=== PATIENT | male | born 1980 | race Caucasian/White ===

== ENCOUNTER 2017-04-27 19:45 | Inpatient (IN) | payer OTHER ==
--- NOTE | ~2017-04-27 | DS ---
Unit #: [id number] #: [id number] Patient: BRIELLE GARAY [id number] [address] [address] [id number] MR#: [id number] NAME: BRIELLE GARAY ROOM: 227 Age: 36 Sex: M Admission Date: 04/28/2017 : 1980 Discharge Date: Attending Physician: Kait Bryan M.D. Primary Care Physician: Espinoza Young M.D. DISCHARGE SUMMARY DISCHARGE DIAGNOSES 1. Heat exhaustion and heat cramps. 2. Acute kidney injury. 3. Hypovolemic hyponatremia. 4. Intravenous heroin dependence with daily use. 5. Hepatitis C. 6. Underweight. 7. Moderate calorie malnutrition. 8. Hypokalemia. 9. Smoking. 10. Homeless. 11. Degenerative joint disease. CONSULTATIONS None. PROCEDURES None. DIAGNOSTIC STUDIES LABORATORY: At the time of discharge, creatinine is 0.7, AST 54, ALT 67, alkaline phosphatase 93, phosphorus 2.5, magnesium 1.9, and albumin 3.1. WBC 6.8, hemoglobin 12.9, and platelets 203,000. Magnesium 2.3. Urine drug screen positive for amphetamines and opiates. HIV nonreactive. ALLERGIES None. DISCHARGE MEDICATIONS 1. Neurontin 300 at 3 times daily for heroin withdrawal. 2. Nicotine 21 mg transdermal daily. HOSPITAL COURSE A 36-year-old admitted because of muscle pains. Heat cramps with heat exhaustion. Patient was given IV fluids and is currently symptomatically better. Acute kidney injury secondary to prerenal and dehydration. Patient received IV fluids. Currently, creatinine is stable. Hypovolemic hyponatremia from dehydration and working outside in the hot sun according to him. Patient received IV fluids, and currently, sodium is better. Unit #: [id number] #: [id number] Patient: BRIELLE GARAY Intravenous heroin abuse with dependence and daily use with mild withdrawal. Continue Neurontin. I gave a prescription for six pills. History of hepatitis C, HIV negative. Outpatient followup with his primary care physician. He has mild transaminitis from it. Hypokalemia, replaced. Smoking. Advised to quit. Homeless. Patient will be seen by a social group worker to help him with his social issues. He should also follow with outpatient drug addiction center, social group worker to give more information. Dictated by... Juan Jose Castellanos TD: 04/29/2017 14:33 JOB #: [id number] DISCHARGE SUMMARY Page 1 of 1 X Kait Bryan MD X DISCHARGE SUMMARY
--- NOTE | ~2017-04-27 | BMI ---
[facility] Nutrition Therapy DATE: 04/28/17 Patient: BRIELLE GARAY Physician: JODI Address: [address] [place] [address] Room/Bed: [address] [place] [address], Zip: [place] [address] Admit Date: 04/28/17 Date of : [birth year] Height: 6 2 Weight: 142 64.8
--- NOTE | ~2017-04-27 | A ---
[facility] Nutrition Therapy DATE: 04/28/17 Patient: BRIELLE GARAY Physician: JODI Address: [address] [place] [address] Room/Bed: [address] [place] [address], Zip: [place] [address] Admit Date: 04/28/17 Date of : [birth year] Height: 6 2 Weight: 142 64.8 NUTRITIONAL ASSESSMENT: REASON: LOW BMI PT IS 36 Y.O. MALE ADMITTED FOR HEAT EXHAUSTION/CRAMPS PMH: ONGOING HEROIN ABUSE, HEP C Anthropometrics: 6'2", WT: 149# (PER PT & BED) (68 KG), BMI: 19.1, 78%IBW Labs: GLU: 136, CREAT: 1.9, CA+:8.3, AST: 50, ALT: 65, GFR: 43.8, K+:3.1, NA+:123 Meds: ZOFRAN, NACL I/O & Bowel function: 450/1 Skin Integrity: NO KNOWN SKIN ISSUES Estimated Nutrition Needs: INCREASED NEEDS 2' PT UNDERWEIGHT, CURRENT CONDITION Assessment: CHART REVIEWED AND EVENTS NOTED. PT SEEN FOR LOW BMI. PT ADMITTED FOR DX ABOVE. OF NOTE, PT HOMELESS. PT REPORTS GOOD PO INTAKE AND APPETITE, NO C/O N/V/D. PT ADMITS USING HEROIN IN PLACE OF FOOD OCCASIONALLY. PT NOTES UBW IS ~155#/NOTES NO RECENT WEIGHT LOSS. 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 THIS RD ENCOURAGED ADEQUATE KCAL, PROTEIN AND FLUID INTAKE (3 MEALS + 1-2 SNACKS DAILY), PT AGREED TO ENSURE SHAKES BID, RD TO ORDER. PT REPORTED NO DIET QUESTIONS AT THIS TIME. RD TO REMAIN AVAILABLE. Dx: UNDERWEIGHT R/T LIFESTYLE AEB LOW BMI OF 19.1, 78%IBW. Intervention: 1. REGULAR DIET 2. ENSURE SHAKES BID Monitoring, Evaluation and Goals: 1. ORAL INTAKE; CONSUME >50% OF MEALS AND SUPPLEMENTS 2. WEIGHTS; PREVENT ANY WEIGHT LOSS; PRESERVE LEAN BODY MASS 3. LABS; ALESIA MONITOR: -PO INTAKE/APPETITE -WEIGHTS -SUPPLEMENT INTAKE Recommendations: [facility] Nutrition Therapy DATE: 04/28/17 Patient: BRIELLE GARAY Physician: JODI Address: [address] [place] [address] Room/Bed: [address] [place] [address], Zip: [place] [address] Admit Date: 04/28/17 Date of : [birth year] Height: 6 2 Weight: 142 64.8 1. PLEASE ORDER DAMIEN ENSURE SHAKES BID W/MEALS FOR ADDITIONAL PROTEIN AND KCAL 2. CONSIDER PERSONNEL SPECIALIST/FINAL INSPECTOR MOVEMENT ASSEMBLY CONSULT RE: PLACEMENT AFTER D/C 3. PROVIDE WEIGHTS q 3 DAYS FOR MONITORING PURPOSES 4. ENCOURAGE ADEQUATE PO INTAKE PT IS UNDERWEIGHT RD WILL F/U PER PROTOCOL PT IS MILDLY COMPROMISED Respectfully, RONEL AGARWAL MS, RD, LD [employer] [facility] cc: client file
--- NOTE | ~2017-04-27 | HP ---
Unit #: [id number] #: [id number] Patient: BRIELLE GARAY [id number] [address] [address] [id number] I MR#: [id number] NAME: BRIELLE GARAY ROOM: 308 Age: 36 Sex: M Admission Date: 04/28/2017 : 1980 Attending Physician: Cortney Jimenes M.D. Primary Care Physician: Espinoza Young M.D. HISTORY AND PHYSICAL CHIEF COMPLAINT Heat exhaustion, heat cramps with acute kidney injury. HISTORY This 36-year-old homeless male, with history of hepatitis C and ongoing heroin abuse, is admitted for acute kidney injury and heat cramps. The patient was outside yesterday in the heat. Developed exhaustion as well as heat cramps. Presented to this emergency department late last evening mildly tachycardic. Labs show acute kidney injury and hyponatremia. He was bolused with 2 L of saline, given Tylenol, potassium and currently is feeling somewhat improved. He injects heroin on a daily basis and does not always use clean needles. States that he will go through heroin withdrawal. He currently is homeless, would like help for his heroin abuse. PAST MEDICAL HISTORY 1. Hepatitis C. 2. DJD. 3. Heroin abuse. ALLERGIES None. HOME MEDICATIONS None. FAMILY HISTORY Negative for kidney disease. SOCIAL HISTORY The patient is homeless. He smokes one pack per day of tobacco. Does not drink alcohol. Injects heroin on a daily basis, does not always use clean needles. REVIEW OF SYSTEMS Notable for heat cramps, heat exhaustion, hepatitis C, DJD, heroin abuse and tobacco abuse. All other systems were reviewed and are otherwise negative. PHYSICAL EXAMINATION GENERAL APPEARANCE: Pleasant 36-year-old male, currently chilling. VITAL SIGNS: Temperature is 97.6, heart rate 115, respirations 19, blood pressure 117/78. O2 saturation is 99% on room air. Unit #: [id number] #: [id number] Patient: BRIELLE GARAY HEENT: Eyes PERRLA. Extraocular muscles are intact. Pharynx is benign. NECK: Supple without adenopathy or thyromegaly. CHEST: Clear. CARDIAC: Normal S1 and S2, slightly tachycardic without murmur. ABDOMEN: Bowel sounds are present. No hepatosplenomegaly, tenderness or masses. EXTREMITIES: Without clubbing, cyanosis or edema. Pedal pulses are present. Track cary in the left AC region. No splinter hemorrhages noted over the fingernail beds. NEUROLOGIC: The patient is awake, alert, oriented. Cranial nerves are intact. He has equal strength throughout. DIAGNOSTIC STUDIES LABORATORY: Hematocrit is 50.8, white blood count is 18.1, normal platelet count. SMA-12 - BUN 21, creatinine 1.9, glucose 136, sodium 123, potassium 3.1. AST 50, ALT 65, alkaline phos. 118. Alcohol level negligible. ASSESSMENT 1. Heat exhaustion/heat cramps. 2. Acute kidney injury due to dehydration with hypovolemic hyponatremia. 3. Heroin abuse. 4. Hepatitis C. 5. Hypokalemia. 6. Tobacco abuse. 7. Homeless. PLANS 1. IV fluids. 2. Replace potassium and check magnesium. 3. Medications for opiate withdrawal. I will order Neurontin, Zofran, Toradol, Ultram and p.r.n. Imodium along with muscle relaxants as needed. 4. Urine tox screen. 5. lock up worker to see. 6. Check HIV. Dictated by Cortney Jimenes M.D. AML/df TD: 04/28/2017 07:01 JOB #: [id number] Unit #: [id number] #: [id number] Patient: BRIELLE GARAY HISTORY AND PHYSICAL Page 1 of 1 X Cortney Jimenes MD X HISTORY AND PHYSICAL
[~2017-04-27 19:45] MED LIST: BACLOFEN10 MG PO; MOTRIN600 MG PO; NO MEDICATIONS; VOLTAREN75 MG PO
[2017-04-27 23:07] LABS: BASOPHIL# 0.1 X10e3 (0-0.3); BASOPHIL% 0.7 % (0-2.5); EOSINOPHIL# 0.1 X10e3 (0-0.7); EOSINOPHIL% 0.6 % (0.0-7.0); HEMATOCRIT 50.8 % (38.0-50.0); HEMOGLOBIN 16.8 gm/dL (13.0-16.0); LYMPHOCYTE# 2.6 X10e3 (1.0-3.5); LYMPHOCYTE% 14.5 % (17.0-45.0); MEAN CORPUSCULAR HEMOGLOBIN 29.7 PG (28-34); MEAN PLATELET VOLUME 9.6 FL (6.5-11.5); MONOCYTE# 1.2 X10e3 (0-1.0); MONOCYTE% 6.5 % (3.0-12.0); NEUTROPHIL# 14.1 X10e3 (1.5-7.1); NEUTROPHIL% 77.7 % (40-75); RED BLOOD COUNT 5.65 X10e (3.90-5.60); RED CELL DISTRIBUTION WIDTH 13.7 % (11.0-15.5); WHITE BLOOD COUNT 18.1 X10e3 (4.0-10.5)
[2017-04-27 23:08] LABS: DIFF IND YES; PLATELET COUNT 295 X10e3 (140-420)
[2017-04-27 23:10] LABS: PLATELET ESTIMATE NORMAL (NORMAL)
[2017-04-27 23:11] LABS: RBC NORMAL YES
[2017-04-28 01:09] LABS: ALKALINE PHOSPHATASE 118 U/L (32-92); ALT (SGPT) 65 U/L (10-40); AST (SGOT) 50 U/L (10-42); BILIRUBIN, DIRECT 0.3 mg/dL (0.0-0.2); BILIRUBIN,TOTAL 1.3 mg/dL (0.2-2.0); BLOOD UREA NITROGEN 21 mg/dL (9-23); BUN/CREATININE RATIO 11.05; CALCIUM SERUM 8.3 mg/dL (8.4-10.2); CARBON DIOXIDE 24 mmol/L (22-31); CHLORIDE 90 mmol/L (100-111); CPK (CREATINE PHOSPHOKINASE) 161 IU/L (36-174); CREATININE SERUM 1.9 mg/dL (0.6-1.4); GLOM FILT RATE Estimated 43.8 mL/min (>60); GLUCOSE FASTING 136 mg/dL (70-110); POTASSIUM 3.1 mmol/L (3.5-5.1); PROTEIN TOTAL SERUM 7.4 g/dL (6.0-8.3)
[2017-04-28 01:10] LABS: ALCOHOL BLOOD <5 mg/dL (0); SODIUM 123 mmol/L (135-145)
[2017-04-28 10:38] LABS: BASOPHIL% 0.4 % (0-2.5); EOSINOPHIL# 0.2 X10e3 (0-0.7); EOSINOPHIL% 2.8 % (0.0-7.0); HEMATOCRIT 41.8 % (38.0-50.0); LYMPHOCYTE# 2.2 X10e3 (1.0-3.5); LYMPHOCYTE% 27.5 % (17.0-45.0); MEAN CELL VOLUME 89.9 FL (83-96); MEAN CORPUSCULAR HEMOGLOBIN 29.8 PG (28-34); MEAN CORPUSCULAR HGB CONC 33.2 g/dL (30-36); MONOCYTE# 0.8 X10e3 (0-1.0); MONOCYTE% 9.5 % (3.0-12.0); NEUTROPHIL# 4.8 X10e3 (1.5-7.1); NEUTROPHIL% 59.8 % (40-75); PLATELET COUNT 210 X10e3 (140-420); RED BLOOD COUNT 4.65 X10e (3.90-5.60); RED CELL DISTRIBUTION WIDTH 13.5 % (11.0-15.5)
[2017-04-28 10:41] LABS: DIFF IND NO; HEMOGLOBIN 13.9 gm/dL (13.0-16.0); WHITE BLOOD COUNT 8.1 X10e3 (4.0-10.5)
[2017-04-28 13:03] LABS: URINE SOURCE CLEAN CATCH
[2017-04-28 13:07] LABS: URINE APPEARANCE CLEAR; URINE BILIRUBIN NEG (NEG); URINE BLOOD NEG (NEG); URINE COLOR YELLOW; URINE GLUCOSE NEG (NEG); URINE KETONE 1+ (NEG); URINE LEUKOCYTE ESTERASE NEG (NEG); URINE NITRATE NEG (NEG); URINE PROTEIN TRACE (NEG); URINE SPECIFIC GRAVITY 1.023 (1.003-1.035)
[2017-04-28 13:15] LABS: CULTURE INDICATED? NO
[2017-04-28 13:18] LABS: AMPHETAMINE POS (NEG); BARBITURATES NEG (NEG); BENZODIAZEPINES NEG (NEG); COCAINE NEG (NEG); MARIJUANA NEG (NEG); OPIATES POS (NEG); TRICYCLIC ANTIDEPRESSANTS NEG (NEG); U METHADONE NEG (NEG)
[2017-04-28 13:48] LABS: ALBUMIN SERUM 3.9 g/dL (3.5-5.0); BILIRUBIN,TOTAL 1.8 mg/dL (0.2-2.0); BUN/CREATININE RATIO 18.88; CALCIUM SERUM 8.8 mg/dL (8.4-10.2); CREATININE SERUM 0.9 mg/dL (0.6-1.4); POTASSIUM 3.7 mmol/L (3.5-5.1); PROTEIN TOTAL SERUM 7.8 g/dL (6.0-8.3)
[2017-04-29 06:36] LABS: HEMATOCRIT 39.2 % (38.0-50.0); HEMOGLOBIN 12.9 gm/dL (13.0-16.0); MEAN CORPUSCULAR HGB CONC 32.9 g/dL (30-36); MEAN PLATELET VOLUME 8.6 FL (6.5-11.5); RED BLOOD COUNT 4.31 X10e (3.90-5.60); WHITE BLOOD COUNT 6.8 X10e3 (4.0-10.5)
[2017-04-29 07:49] LABS: ALBUMIN SERUM 3.1 g/dL (3.5-5.0); BILIRUBIN,TOTAL 0.8 mg/dL (0.2-2.0); BUN/CREATININE RATIO 22.85; CALCIUM SERUM 8.6 mg/dL (8.4-10.2); CREATININE SERUM 0.7 mg/dL (0.6-1.4); GLOM FILT RATE Estimated 119.8 mL/min (>60); MAGNESIUM 1.9 mg/dL (1.6-3.0); PHOSPHOROUS 2.5 mg/dL (2.5-4.6); POTASSIUM 4.7 mmol/L (3.5-5.1)
[2017-04-29] MEDS ORDERED: GABAPENTIN300 M2 PO (13:17)
[2017-04-29] MEDS ORDERED: NICOTINE1 EAC1 TD (13:18)
== END 2017-04-29 17:22 | disposition home or self-care (01) | DRG 683 ==
LOC: CED 19:45 → CEDOF 04-28 02:00 → C2A 04-28 02:00 → CED 04-28 02:00 → C3A PCU 04-28 04:37 → CEDOF 04-28 04:37 → C2A 04-28 07:54 → C3A PCU 04-28 07:54 → C2A 04-28 08:00
PROVIDERS: Emergency Medicine; Internal Medicine
DX: N17.9 Acute kidney failure, unspecified (principal); E87.1 Hypo-osmolality and hyponatremia; E44.0 Moderate protein-calorie malnutrition; F11.20 Opioid dependence, uncomplicated; Z68.1 Body mass index [BMI] 19.9 or less, adult; T67.5XXA Heat exhaustion, unspecified, initial encounter; X58.XXXA Exposure to other specified factors, initial encounter; T67.2XXA Heat cramp, initial encounter; E86.0 Dehydration; E87.6 Hypokalemia; F17.210 Nicotine dependence, cigarettes, uncomplicated; Z59.0 Homelessness; M19.90 Unspecified osteoarthritis, unspecified site; R00.0 Tachycardia, unspecified; Z86.19 Personal history of other infectious and parasitic diseases
CPT/HCPCS: 36415; 80048; 80053; 80076; 80307; 81003; 82550; 83735; 84100; 85025; 85027; 87806; 96360; 96361; 99285; G0480